=== PATIENT | male | born 1985 | race Caucasian/White ===

== ENCOUNTER 2017-01-05 12:30 | Emergency (ER) | payer SELFPAY ==
[~2017-01-05] VITALS: Ht 170.2 cm; Wt 88.0 kg
[2017-01-05 12:35] VITALS: Ht 170.2 cm; Wt 88.0 kg
[2017-01-05] MEDS ORDERED: FLUORESCEIN STRIP LEFT EYE ONE (14:30)
[2017-01-05] MEDS ORDERED: TETRACAINE 0.5% 4 ML OPH LEFT EYE ONE (14:30)
--- NOTE | 2017-01-05 14:38 | ERD ---
ER Documentation Chief Complaint Date/Time DATE: 01/05/17 TIME: 14:35 Chief Complaint LT EYE REDNESS /PAIN X 2 DAYS , NO TRAUMA HPI This is a 31-year-old male presents to the ER with left eye discomfort. Patient states that 2 days ago he denies that his left eye was very watery. Yesterday he developed some mild pain and redness to the left eye and today he states that redness and pain became worse. Patient states that his eye is very itchy and he has yellow discharge coming from his eye. Patient denies any vision loss, blurry vision, double vision, photophobia. Patient denies seeing any halos around lights. He denies any trauma or foreign body to the eye. Patient denies any headaches. Patient denies any nausea or vomiting.Patient denies any fevers or chills. ROS 12 point review of systems was done, all negative except per HPI. Medications Home Meds Active Scripts Tobramycin Sulfate* (Tobrex*) 3.5 Gm Oint..gm., 1 APPLIC LEFT EYE TID for 7 Days , EA Prov:SHADYEUSEBIA C 01/05/17 Allergies Allergies: Coded Allergies: No Known Allergy (Unverified , 04/20/12) PMhx/Soc Hx Alcohol Use: No Hx Substance Use: No Hx Tobacco Use: No Physical Exam Vitals Vital Signs Date Time Temp Pulse Resp B/P Pulse Ox O2 Delivery O2 Flow Rate FiO2 01/05/17 12:35 98.1 78 18 133/67 99 Physical Exam GENERAL: The patient is well developed and appropriate for usual state of health , in no apparent distress. HEENT: Atraumatic. Injected conjunctiva with some yellow discharge. Pupils equal, round, and reactive to light. Extraocular muscles are grossly intact. Nonpainful extraocular movements, no surrounding erythema. No hyphema or hypopyon. no periorbital soft tissue swelling, erythema or warmth,no chemosis CHEST: Clear to auscultation bilaterally. There are no rales, wheezes or rhonchi. HEART: Regular rate and rhythm. No murmurs, clicks, rubs or gallops. NEURO: Alert and oriented. SKIN: The skin is warm and dry. Results 24 hrs Current Medications Medications (Trade) Dose Ordered Sig/Juliette Route PRN Reason Start Time Stop Time Status Last Admin Dose Admin Tetracaine HCl (Tetracaine 0.5% Steri-Unit Kaitlin) 1 drop ONCE ONCE LEFT EYE 01/05/17 14:30 01/05/17 14:31 DC Fluorescein Sodium ([id number]-B-[id number]) 1 strip ONCE ONCE LEFT EYE 01/05/17 14:30 01/05/17 14:31 DC Procedures/MDM Patient's eye was examined with fluorescein light, there was no evidence of corneal abrasion or corneal ulceration. Subconjunctival hemorrhage, bacterial conjunctivitis, viral conjunctivitis, allergic conjunctivitis,orbital cellulitis, hyphema, corneal abraion, keratitis , uveitis, angle-closure glaucoma, retinal detachment, ruptured globe. Patient did have some yellow eye discharge this could possibly be bacterial etiology will be sent home with tobramycin. Suspicion for acute angle-closure glaucoma is low as patient does not have any risk factors and is comfortable and without any pain in the ER. Suspicion for retrobulbar hematoma is low. Suspicion for orbital cellulitis is less there is no surrounding erythema of the eye and does not have any proptosis. Patient is afebrile and extremely well-appearing. Patient urgently needs to follow-up with director internal audit I gave him the information for [facility]. Patient should return to ER sooner if symptoms worsen. My medical decision making shared with the patient understands and agrees with plan. Departure Diagnosis: Primary Impression: Eye redness Condition: Stable EUSEBIA CARUSO Jan 05, 2017 14:38
[2017-01-05] MEDS ORDERED: TBR.3OO LEFT EYE (15:43)
== END 2017-01-05 16:08 | disposition home or self-care (01) ==
LOC: FTE 12:30
DX: H57.8 Other specified disorders of eye and adnexa (principal)
CPT/HCPCS: 99283

== ENCOUNTER 2018-03-31 13:27 | Emergency (ER) | END 2018-03-31 14:30 | disposition home or self-care (01) ==